=== PATIENT | male | born 1990 | race Caucasian/White ===

== ENCOUNTER 2023-12-21 17:41 | Emergency (ER) | payer BC, SELFPAY ==
[2023-12-21 17:48] VITALS: BMI 29.0
[2023-12-21 18:00] VITALS: BP 150/95
--- NOTE | 2023-12-21 21:14 | ED.GENMED ---
History of Present Illness
<Wyatt Hartmann MD - Last Filed: 12/21/23 23:07>
General
Chief Complaint: Crisis Evaluation
Source: patient
Exam Limitations: none
Time Seen by Provider: 12/21/23 19:11
Nursing documentation reviewed up to this point in time: agreed with
Travel History
Have you had any contact with someone who has COVID-19?: No
Do you have any symptoms of coronavirus? Fever > 100 degrees, chills, cough, shortness of breath, sore throat, loss of taste or smell, muscle aches, or headache?: No
History of Present Illness
History of Present Illness:
Patient with history of ADHD on Adderall, presents to ED for medical evaluation after 302 petition was filed by his family, with concern for erratic behavior along with noncompliance with his medications. Patient himself however has no complaints.
Denies recent illness. Denies recent change in medications or diet. Denies missing his medications.
Review of Systems
<Wyatt Hartmann MD - Last Filed: 12/21/23 23:07>
Review of Systems
Allergies reviewed?: Yes
All Other Systems: ROS reviewed and negative except as documented in HPI and ROS
Constitutional: Reports no symptoms
EENT: Reports no symptoms
Respiratory: Reports no symptoms
Cardiac: Reports no symptoms
ABD/GI: Reports no symptoms
Musculoskeletal: Reports no symptoms
Skin: Reports no symptoms
Neurological: Reports no symptoms
Phy Exam
<Wyatt Hartmann MD - Last Filed: 12/21/23 23:07>
Physical Exam
Physical Exam:
Physical Exam
General: no apparent distress, not acutely ill. afebrile
Head: nc/at. eomi
Neck: supple. normal range of motion
Neuro: alert and oriented. no focal neurological deficits
Skin: no rash
Psychiatric: well kept. interactive and cooperative
Extremities: no edema. no calf tenderness.
Course
<Wyatt Hartmann MD - Last Filed: 12/21/23 23:07>
Orders/Labs/Results
Orders:
Orders
12/21/23 20:15
Crisis Consult Urgent
Reason for Consult: aggressive behavior
12/21/23 21:14
Drug Screen, Urine [Urine Drug Abuse Screen] Urgent
Date Specimen was Collected: 12/21/23
Time Specimen was Collected: 21:10
Abnormal Lab Results
12/21/23
21:14
U Marijuana (THC) Screen Positive H
(Negative)
Vital Signs
Initial and Last Documented VS:
Initial Vital Signs
Temp Pulse Resp BP Pulse Ox
98.5 F 125 19 150/95 96
12/21/23 18:00 12/21/23 18:00 12/21/23 18:00 12/21/23 18:00 12/21/23 18:00
Last Documented Vital Signs
Temp Pulse Resp BP Pulse Ox
98.5 F 99 16 141/88 96
12/21/23 18:00 12/22/23 12:12 12/22/23 12:12 12/22/23 12:12 12/22/23 12:12
<Juancho Murphy DO - Last Filed: 12/22/23 12:38>
Orders/Labs/Results
Orders:
Orders
12/21/23 20:15
Crisis Consult Urgent
Reason for Consult: aggressive behavior
12/21/23 21:14
Drug Screen, Urine [Urine Drug Abuse Screen] Urgent
Date Specimen was Collected: 12/21/23
Time Specimen was Collected: 21:10
Abnormal Lab Results
12/21/23
21:14
U Marijuana (THC) Screen Positive H
(Negative)
Vital Signs
Initial and Last Documented VS:
Initial Vital Signs
Temp Pulse Resp BP Pulse Ox
98.5 F 125 19 150/95 96
12/21/23 18:00 12/21/23 18:00 12/21/23 18:00 12/21/23 18:00 12/21/23 18:00
Last Documented Vital Signs
Temp Pulse Resp BP Pulse Ox
98.5 F 99 16 141/88 96
12/21/23 18:00 12/22/23 12:12 12/22/23 12:12 12/22/23 12:12 12/22/23 12:12
<Wyatt Hartmann MD - Last Filed: 12/21/23 23:07>
MDM/Problems Addressed
MDM/Problems Addressed:
Patient evaluated by telepsychiatry, who recommends patient to be transferred for inpatient psychiatric evaluation and treatment.
<Juancho Murphy DO - Last Filed: 12/22/23 12:38>
*Critical Care Note
Total Time (30-74mins, 75-104mins- exclusive of procedures): Not Applicable
ED Attending Note
<Wyatt Hartmann MD - Last Filed: 12/21/23 23:07>
-
Portions of this chart may have been created with voice recognition software.� Occasional wrong word or��sound alike� substitutions may have occurred due to the inherent limitations of voice recognition software.
Discharge Plan
Departure
Patient Disposition: Psych Facility
Date of Disposition: 12/21/23
Time of Disposition: 21:14
Patient Status:: 302
Discharge Problem:
Manic behavior
Prescriptions:
No Action
quetiapine [Seroquel] 100 mg Tablet
100 mg PO HS
dextroamphetamine-amphetamine [Adderall] 20 mg Tablet
20 mg PO TID
Referrals:
UNKNOWN - PT NOT,INTERVIEWE [Family Provider] -
Interventions
Interventions:
*Risk Screen - Suicide Last Done: 12/21/23 18:00
*General Assessment Last Done: 12/21/23 17:56
*Neglect/Abuse Screening Last Done: 12/21/23 18:00
ED- Fall Risk Assessment Last Done: 12/21/23 17:56
*ED COVID-19 Vaccine History Last Done: 12/21/23 17:55
ED-Psychological Assessment Last Done: 12/21/23 17:59
[2023-12-21 21:45] LABS: Amphetamines Negative (Negative); Barbiturates Negative (Negative); Benzodiazepines Negative (Negative); Buprenorphine Negative (Negative); Cocaine Negative (Negative); Marijuana Positive (Negative); Methadone Negative (Negative); Methamphetamines Negative (Negative); Opiates Negative (Negative); Phencyclidine Negative (Negative); Tricyclic Antidepressants Negative (Negative)
[2023-12-22 12:12] VITALS: BP 141/88
--- NOTE | 2023-12-22 12:38 | ED.CRISIS ---
ED Crisis Note
ED Crisis Note
Subjective:
No new issues
Assessment/Plan:
Patient currently on 302�going to [facility] at 5 PM tonight. Has not required any medication today.
== END 2023-12-22 18:11 ==
LOC: EMR 17:41
PROVIDERS: EMERGENCY PHYSICIAN Emergency Medicine
DX: F30.9 Manic episode, unspecified (principal); Z91.148 Patient's other noncompliance with medication regimen for other reason; F90.9 Attention-deficit hyperactivity disorder, unspecified type; Z88.1 Allergy status to other antibiotic agents
CPT/HCPCS: 80306; 99285